=== PATIENT | male | born 1980 | race Caucasian/White ===

== ENCOUNTER 2016-10-09 19:48 | Emergency (ER) | payer MEDICAID | END 2016-10-09 21:33 | disposition home or self-care (01) | LOC: D.ER 19:48 | DX: S69.92XA Unspecified injury of left wrist, hand and finger(s), initial encounter (principal); W20.8XXA Other cause of strike by thrown, projected or falling object, initial encounter; Y93.89 Activity, other specified; Y92.89 Other specified places as the place of occurrence of the external cause; M79.645 Pain in left finger(s) ==

== ENCOUNTER 2016-11-14 19:32 | Emergency (ER) | payer MEDICAID | END 2016-11-14 21:15 | disposition left against medical advice (07) | LOC: D.ER 19:32 | DX: M54.5 Low back pain (principal) ==

== ENCOUNTER 2017-02-13 13:19 | Emergency (ER) | payer MEDICAID | END 2017-02-13 16:21 | disposition home or self-care (01) | LOC: D.ER 13:19 | DX: S83.91XA Sprain of unspecified site of right knee, initial encounter (principal); X58.XXXA Exposure to other specified factors, initial encounter; Y93.89 Activity, other specified; Y92.019 Unspecified place in single-family (private) house as the place of occurrence of the external cause ==